=== PATIENT | male | born 1990 | race Caucasian/White ===

== ENCOUNTER 2023-10-29 02:46 | Emergency (ER) | payer SELFPAY ==
[~2023-10-29] VITALS: Ht 182.9 cm; Wt 68.0 kg
[2023-10-29] MEDS ORDERED: AMOCLA875 PO (03:55)
[2023-10-29] MEDS ORDERED: Clindamycin HC150 MG PO (03:55)
[2023-10-29 04:15] VITALS: BP 144/98
== END 2023-10-29 04:15 | disposition home or self-care (01) ==
LOC: ER 02:46
DX: L03.012 Cellulitis of left finger (principal); I10 Essential (primary) hypertension
CPT/HCPCS: 73140; 96372; 99283-25; A9270; J1885

== ENCOUNTER 2025-07-17 07:55 | Day surgery (SDC) | payer OTHER ==
[~2025-07-17] VITALS: Ht 182.9 cm; Wt 92.3 kg
[~2025-07-17 07:55] MED LIST: AMOCLA875 PO; Clindamycin HC150 MG PO
[2025-07-17] MEDS ORDERED: CeFAZolin Sodium 2,000 MG VIAL ONE (08:04)
[2025-07-17] MEDS ORDERED: Bupivacaine 0.5% W/EPI 1:200000 SDV 30 ML Vial ONE (09:41)
[2025-07-17] MEDS ORDERED: Ketorolac Tromethamine 30mg Vial ONE (09:47)
[2025-07-17] MEDS ORDERED: Ondansetron HCl 2 MG / ML 2ML Vial ONE (09:47)
[2025-07-17] MEDS ORDERED: FentaNYL Citrate 50 MCG/ML 2 ML Injection ONE (09:47)
[2025-07-17] MEDS ORDERED: Dexamethasone Sod Phos 10 MG/ML 1ML VIAL ONE (09:47)
[2025-07-17] MEDS ORDERED: Bupivacaine HCl 0.25% 30 ML Injection ONE (11:53)
[2025-07-17 12:34] VITALS: BP 127/82
--- NOTE | 2025-07-17 12:50 | NUR ---
07/17/25 1250 Crystal Gonzalez PT TO STEPDOWN FROM PACU. BELONGINGS RETURNED TO PT, INCLUDING CELL PHONE THAT FLASHES FREQUENTLY. PT TOLD NURSE NO PHOTOS WERE BEING TAKEN. INFORMED BY PT THAT HE NEEDS RECORD OF MEDS ADMIN R/T DRUG TESTING STATUS. SPOKE WITH [employer] WORKER, GINNA, ON PT'S CELLPHONE ON SPEAKERPHONE TO CLARIFY. . CHARGE NURSE SUZANNE UPDATED. INSTRUCTED TO HANDWRITE MEDS ADMIN BASED ON ANESTHESIA RECORD. S/O TO BEDSIDE. PT STATES PAIN 4/10, REQUESTING POST-OP BLOCK. CHARGE NURSE SUZANNE UPDATED, DR. WERNER CONTACTED. AWAITING ARRIVAL DR. WERNER. CO-NURSE JERRELL TO ASSIST W/ POST-OP BLOCK. INSTRUCTED BY DR WERNER TO KEEP PT FOR 20 MINS POST BLOCK. NO ADVERSE EFFECTS NOTED, PAIN DOWN TO 1/10. CLARIFIED WHICH SHEET IS "DR. SHORE'S POST OP PAIN SHEET" WITH DR. JALLOH. DC INSTRUCTIONS REVIEWED WITH PT AND S/O. DC'D WITH COPY OF DEPT OF CORRECTIONS RX FORM SIGNED BY DR. JALLOH, NOTE WRITTEN BY MYSELF WITH ANESTHESIA MEDS, GREEN SHEET W PERSONAL PROCEDURE-SPECIFIC DC INSTRUCTIONS, DR. SHORE'S PAIN SHEET, AND STANDARD 2-SIDED MEDICATION EDU FORM. VERBALIZED UNDERSTANDING, SIGNATURES OBTAINED. DEMONSTRATED UNDERSTANDING OF WBAT STATUS DURING TRANSFER TO WHEELCHAIR. TOLERATING PO. PIV OUT.
== END 2025-07-17 12:41 | disposition home or self-care (01) ==
LOC: ORSCSDS 07:55
PROVIDERS: Orthopaedic Surgery
PROC: 0QBB0ZX Excision of Right Lower Femur, Open Approach, Diagnostic (ICD-10-PCS; principal; 2025-07-17 09:45)
DX: D16.21 Benign neoplasm of long bones of right lower limb (principal); Z87.891 Personal history of nicotine dependence
CPT/HCPCS: 88305; J0166; J0690; J1100; J1885; J2405; J2704; J3010